=== PATIENT | female | born 1995 | race American Indian/Alaskan Native ===

== ENCOUNTER 2020-12-31 15:46 | Emergency (ER) | payer SELFPAY ==
[2020-12-31 15:57] VITALS: BP 122/75
--- NOTE | 2020-12-31 16:39 | Emergency Department Report ---
ED N/V/D HPI - General Chief complaint: Nausea/Vomiting/Diarrhea Stated complaint: POSS FOOD POISING,VOMITTING BLOOD PUI?: No Time Seen by Provider: 12/31/20 16:06 Source: patient Mode of arrival: Ambulatory Limitations: No Limitations - History of Present Illness Initial comments: Chief complaint: Nausea vomiting blood HPI: Chief complaint: "I ate some [employer]" HPI: This is a healthy 25-year-old female who presents with lower abdominal discomfort vomiting with hematemesis after eating fast food 3 days ago. She had stomach bloat. 1 episode of vomiting. No diarrhea. MD complaint: nausea, vomiting, other (1 episode of streaked vomiting) Description of Vomiting: food contents, blood-streaked Associated Abdominal Pain: Yes (bloating) Location: diffuse Radiation: none Severity: mild Consistency: constant Improves with: none Worsens with: none Context: possible food poisoning - Related Data Previous Rx's Medication Instructions Recorded Last Taken Type Ondansetron [Zofran Odt] 4 mg PO Q8HR PRN #10 tab.rapdis 12/31/20 Unknown Rx Allergies Allergy/AdvReac Type Severity Reaction Status Date / Time No Known Allergies Allergy Unverified 12/31/20 15:54 ED Review of Systems ROS: Stated complaint: POSS FOOD POISING,VOMITTING BLOOD Other details as noted in HPI Comment: All other systems reviewed and negative Constitutional: denies: chills, fever, malaise Respiratory: denies: cough, shortness of breath Gastrointestinal: abdominal pain, nausea, vomiting. denies: diarrhea ED Past Medical Hx - Past Medical History Previous Medical History?: Yes Additional medical history: bronchitis, heart murmur - Surgical History Past Surgical History?: No - Social History Smoking Status: Never Smoker Substance Use Type: None - Medications Home Medications: Home Medications Medication Instructions Recorded Confirmed Last Taken Type Ondansetron [Zofran Odt] 4 mg PO Q8HR PRN #10 tab.rapdis 12/31/20 Unknown Rx ED Physical Exam - General Limitations: No Limitations General appearance: alert, in no apparent distress, other (Well-appearing talkative smiling appears comfortable) - Head Head exam: Present: atraumatic, normocephalic - Eye Eye exam: Present: normal appearance - ENT ENT exam: Present: mucous membranes moist - Neck Neck exam: Present: normal inspection, full ROM - Respiratory Respiratory exam: Present: normal lung sounds bilaterally. Absent: respiratory distress, wheezes, rales, rhonchi - Cardiovascular Cardiovascular Exam: Present: regular rate, normal rhythm, normal heart sounds. Absent: systolic murmur, diastolic murmur, rubs, gallop - GI/Abdominal GI/Abdominal exam: Present: soft, normal bowel sounds. Absent: distended, tenderness, guarding, rebound - Extremities Exam Extremities exam: Present: normal inspection - Back Exam Back exam: Present: normal inspection - Neurological Exam Neurological exam: Present: alert, oriented X3 - Psychiatric Psychiatric exam: Present: normal affect, normal mood - Skin Skin exam: Present: warm, dry, intact, normal color. Absent: rash ED Course Vital Signs 12/31/20 15:55 Temperature 98.3 F Pulse Rate 90 Respiratory 14 Rate Blood Pressure 122/75 O2 Sat by Pulse 100 Oximetry ED Medical Decision Making - Medical Decision Making Food poisoning: Prescribed Zofran nontender abdomen no fever. No indication peritonitis. LMP 2 weeks ago. Low likelihood of . Critical care attestation.: If time is entered above; I have spent that time in minutes in the direct care of this critically ill patient, excluding procedure time. ED Disposition Clinical Impression: Food poisoning Disposition: 01 HOME / SELF CARE / HOMELESS Is pt being admited?: No Does the pt Need Aspirin: No Condition: Stable Instructions: Food Poisoning, [id number] Prescriptions: Ondansetron [Zofran Odt] 4 mg PO Q8HR PRN #10 tab.rapdis PRN Reason: Nausea Referrals: PRIMARY CARE, [Primary Care Provider] - 3-5 Days
--- NOTE | 2020-12-31 16:39 | Emergency Department Report ---
ED N/V/D HPI - General Chief complaint: Nausea/Vomiting/Diarrhea Stated complaint: POSS FOOD POISING,VOMITTING BLOOD Time Seen by Provider: 12/31/20 16:06 Source: patient Mode of arrival: Ambulatory Limitations: No Limitations - History of Present Illness Initial comments: There is a 25-year-old female with no sniffing past medical history presents with nausea vomiting. - Related Data Previous Rx's Medication Instructions Recorded Last Taken Type Ondansetron [Zofran Odt] 4 mg PO Q8HR PRN #10 tab.rapdis 12/31/20 Unknown Rx Allergies Allergy/AdvReac Type Severity Reaction Status Date / Time No Known Allergies Allergy Unverified 12/31/20 15:54 ED Review of Systems ROS: Stated complaint: POSS FOOD POISING,VOMITTING BLOOD Other details as noted in HPI ED Past Medical Hx - Past Medical History Previous Medical History?: Yes Additional medical history: bronchitis, heart murmur - Surgical History Past Surgical History?: No - Medications Home Medications: Home Medications Medication Instructions Recorded Confirmed Last Taken Type Ondansetron [Zofran Odt] 4 mg PO Q8HR PRN #10 tab.rapdis 12/31/20 Unknown Rx ED Physical Exam - General Limitations: No Limitations ED Course Vital Signs 12/31/20 15:55 Temperature 98.3 F Pulse Rate 90 Respiratory 14 Rate Blood Pressure 122/75 O2 Sat by Pulse 100 Oximetry Critical care attestation.: If time is entered above; I have spent that time in minutes in the direct care of this critically ill patient, excluding procedure time. ED Disposition Clinical Impression: Food poisoning Disposition: 01 HOME / SELF CARE / HOMELESS Is pt being admited?: No Does the pt Need Aspirin: No Condition: Stable Instructions: Food Poisoning, [id number] Prescriptions: Ondansetron [Zofran Odt] 4 mg PO Q8HR PRN #10 tab.rapdis PRN Reason: Nausea
== END 2020-12-31 17:16 | disposition home or self-care (01) ==
LOC: ED 15:46
DX: A05.9 Bacterial foodborne intoxication, unspecified (principal); Z79.899 Other long term (current) drug therapy
CPT/HCPCS: 99282